=== PATIENT | female | born 1995 | race Caucasian/White ===

== ENCOUNTER 2021-02-21 09:40 | Emergency (ER) | payer OTHER ==
[~2021-02-21 09:40] MED LIST: IBUPROFEN800 MG PO; ORBACTIV IV
[2021-02-21 10:51] LABS: HEMOGLOBIN 14.1 gm/dl (12.3-15.3); RED BLOOD COUNT 4.36 M/UL (4.00-5.10); WHITE BLOOD COUNT 8.8 K/UL (4.5-11.0)
[2021-02-21 11:09] LABS: BUN/CREATININE RATIO 22 (0-10)
[2021-02-21] MEDS ORDERED: ZOFRAN ODT 4 MG4 MG PO (14:22)
[2021-02-21] MEDS ORDERED: IBU800 MG PO (14:22)
== END 2021-02-21 14:35 | disposition home or self-care (01) ==
LOC: ER1 09:40
DX: N13.2 Hydronephrosis with renal and ureteral calculous obstruction (principal); F17.210 Nicotine dependence, cigarettes, uncomplicated; Z86.13 Personal history of malaria; Z88.1 Allergy status to other antibiotic agents; Z90.89 Acquired absence of other organs; Z79.899 Other long term (current) drug therapy
CPT/HCPCS: 80053; 81001; 83605; 83690; 84703; 85025; 96374; 96375; 99284; J1885; J2405; J7030